=== PATIENT | female | born 1965 | race Caucasian/White ===

== ENCOUNTER → 2018-05-23 | Outpatient (CLI) | payer OTHER ==
[~2018-05-23] MED LIST: ANTIVERT25 MG PO; CLARITIN10 MG PO; ONDANSETRON HCL4 M2 PO; UNICOMPLEX M TA1 TA1 PO
== END ==
LOC: M.RAD 09:51
DX: Z12.31 Encounter for screening mammogram for malignant neoplasm of breast (principal)

== ENCOUNTER 2019-01-06 08:59 | Emergency (ER) | payer OTHER ==
[~2019-01-06] VITALS: Ht 167.6 cm; Wt 80.3 kg
[2019-01-06 09:36] LABS: ABSOLUTE BASOPHILS 0.1 thou/uL (0.0-0.2); ABSOLUTE EOSINOPHILS 0.1 thou/uL (0.0-0.7); ABSOLUTE LYMPHOCYTES 1.7 thou/uL (0.8-5.3); ABSOLUTE MONOCYTES 0.3 thou/uL (0.0-1.2); ABSOLUTE NEUTROPHILS 3.3 thou/uL (1.6-8.1); BASOPHILS 1.3 %; EOSINOPHILS 1.4 %; HEMATOCRIT 42.8 % (37.0-47.0); LYMPHOCYTES 30.7 %; MCH 31.5 pg (26.0-34.0); MCHC 35.1 g/dL (28.0-37.0); MONOCYTES 6.1 %; MPV 7.4 fl. (7.2-11.1); NUCLEATED RBCS 0 /100WBC; PLATELET COUNT* 228 thou/uL (150-400); POLYS 60.5 %; RBC 4.76 mil/uL (4.20-5.00); RDW-CV 13.2 % (10.5-14.5); WBC 5.4 thou/uL (4.0-11.0)
[2019-01-06 09:56] LABS: ANION GAP 9 mmol/L (7-16); BUN 13 mg/dL (7-18); CALCIUM 8.9 mg/dL (8.5-10.1); CHLORIDE 105 mmol/L (98-107); CO2 27 mmol/L (21-32); CREATININE 0.8 mg/dL (0.6-1.3); GLUCOSE 100 mg/dL (70-99); POTASSIUM 3.9 mmol/L (3.5-5.1); SODIUM 141 mmol/L (136-145); TROPONIN-I LEVEL <0.06 ng/mL (<0.06)
[2019-01-06 10:00] LABS: ALBUMIN 3.9 g/dL (3.4-5.0); ALKALINE PHOSPHATASE 115 U/L (46-116); LIPASE 242 U/L (73-393); NT-PRO BRAIN NAT PEPTIDE 35 pg/mL (<300); SGOT 26 U/L (15-37); SGPT 27 U/L (30-65); TOTAL BILIRUBIN 0.3 mg/dL (<0.1-1.0); TOTAL PROTEIN 7.4 g/dL (6.4-8.2)
[2019-01-06 10:20] LABS: CHOLESTEROL 160 mg/dL (<200); HDL CHOLESTEROL 40 mg/dL (>40); LDL CHOLESTEROL 93 mg/dL (<100); TRIGLYCERIDE 138 mg/dL (<150); VLDL 28 mg/dL (<40)
[2019-01-06 10:21] LABS: SERUM ASSESSMENT Clear
[2019-01-06 11:28] LABS: URINE BILIRUBIN NEGATIVE (Negative); URINE BLOOD TRACE (Negative); URINE CLARITY CLEAR; URINE COLOR YELLOW; URINE GLUCOSE-RANDOM NEGATIVE (Negative); URINE KETONES NEGATIVE (Negative); URINE LEUKOCYTES-REFLEX NEGATIVE (Negative); URINE NITRITE-REFLEX NEGATIVE (Negative); URINE PROTEIN NEGATIVE (Negative); URINE SPECIFIC GRAVITY <= 1.005 (1.005-1.030); URINE UROBILINOGEN 0.2 E.U./dl (0.2-1.0)
[2019-01-06 11:57] VITALS: BP 124/76
--- NOTE | 2019-01-06 14:23 | EKG ---
[place] [address] ELECTROCARDIOGRAM REPORT Name: CONOR FLETCHERZABETH Kae [id number] Admission: 01/06/19 Attend Phys: Discharge: 01/06/19 Date of : 61 Report #: [id number] THIS REPORT FOR: //name// [facility] Test Date: 2019-01-06 Test Time: 09:16:54 Pat Name: KYLE FLETCHER Department: Room: Gender: F [employer]: EDEN : 1965 Requested By: Gagan Perez Order Number: [id number] MD: Román Lopez Measurements Intervals [place] Rate: 78 P: 71 UT: 134 QRS: 16 QRSD: 106 T: 54 QT: 391 QTc: 446 Interpretive Statements Sinus rhythm S1,S2,S3 pattern Compared to ECG 07/15/2014 13:06:19 No significant changes Electronically Signed On 01-06-2019 14:23:40 [employer] by Román Lopez [email or web address] <ELECTRONICALLY SIGNED> By: Román Lopez MD, [facility] 01/06/19 1423 0916 5 Román Lopez MD, FACC /EPI
[2019-01-07 02:08] LABS: GLYCOHEMOGLOBIN (HGB A1C) 5.2 % (4.8-5.6)
== END 2019-01-06 11:58 | disposition home or self-care (01) ==
LOC: M.ERS 08:59
PROVIDERS: Emergency Medicine
DX: K43.9 Ventral hernia without obstruction or gangrene (principal); R63.5 Abnormal weight gain; Z68.28 Body mass index [BMI] 28.0-28.9, adult; J45.909 Unspecified asthma, uncomplicated; Z91.040 Latex allergy status

== ENCOUNTER → 2019-05-25 | Outpatient (CLI) | payer OTHER | LOC: M.RAD 14:42 | DX: Z12.31 Encounter for screening mammogram for malignant neoplasm of breast (principal) ==

== ENCOUNTER → 2019-06-16 | Outpatient (CLI) | payer OTHER | LOC: M.RAD 05-26 09:30 | DX: N60.02 Solitary cyst of left breast (principal) ==

== ENCOUNTER → 2021-07-26 | Outpatient (CLI) | payer OTHER ==
[2021-07-26 15:39] LABS: HEMATOCRIT 35.9 % (37.0-47.0); HEMOGLOBIN 12.2 gm/dL (12.0-15.0); MCH 30.5 pg (26.0-34.0); MCHC 34.1 g/dL (28.0-37.0); MCV 89.6 fL (80.0-100.0); MPV 6.9 fl. (7.2-11.1); RDW-CV 12.4 % (10.5-14.5); WBC 7.5 thou/uL (4.0-11.0)
[2021-07-26 15:59] LABS: ALBUMIN 3.6 g/dL (3.4-5.0); ALKALINE PHOSPHATASE 99 U/L (46-116); ANION GAP 8 mmol/L (7-16); BUN 10 mg/dL (7-18); CALCIUM 8.8 mg/dL (8.5-10.1); CHLORIDE 103 mmol/L (98-107); CHOLESTEROL 130 mg/dL (<200); CO2 31 mmol/L (21-32); GLUCOSE 88 mg/dL (70-99); HDL CHOLESTEROL 31 mg/dL (>40); LDL CHOLESTEROL 79 mg/dL (<100); POTASSIUM 3.9 mmol/L (3.5-5.1); SGOT 18 U/L (15-37); SGPT 22 U/L (30-65); SODIUM 142 mmol/L (136-145); TC:HDL 4.2 Ratio (Not establshd); TOTAL BILIRUBIN 0.3 mg/dL (<0.1-1.0); TOTAL PROTEIN 7.6 g/dL (6.4-8.2); TRIGLYCERIDE 101 mg/dL (<150); VLDL 20 mg/dL (<40)
[2021-07-26 16:06] LABS: SERUM ASSESSMENT Clear
[2021-07-27 04:07] LABS: GLYCOHEMOGLOBIN (HGB A1C) 5.5 % (4.8-5.6)
== END ==
LOC: M.RAD 14:14
PROVIDERS: ATTEND Family Medicine
DX: Z12.31 Encounter for screening mammogram for malignant neoplasm of breast (principal); Z00.01 Encounter for general adult medical examination with abnormal findings; J98.4 Other disorders of lung; M51.36 Other intervertebral disc degeneration, lumbar region; M41.86 Other forms of scoliosis, lumbar region; R07.81 Pleurodynia; R42 Dizziness and giddiness; R03.0 Elevated blood-pressure reading, without diagnosis of hypertension; R13.0 Aphagia; E55.9 Vitamin D deficiency, unspecified